=== PATIENT | male | born 1980 | race Caucasian/White ===

== ENCOUNTER 2017-02-23 06:10 | Day surgery (SDC) | payer BC ==
[2017-02-19 17:37] LABS: HEMATOCRIT 48.5 % (40.0-51.0); HEMOGLOBIN 17.1 g/dL (13.6-17.8)
--- NOTE | ~2017-02-23 | OP ---
Record Of Operation [facility] [address] [place]. [address] NAME: RAGHAVENDRA DUARTE : 84 STATUS : [facility]#: [id number] AGE: 36 ADM/REG DATE : 02/23/17 MR#: [id number] REPORT SERV DATE: 02/26/17 DICTATED BY: JUAN LUIS HAWKINS DATE: 02/23/17 REPORT STATUS : Draft TRANSCRIBED BY: MODJim DATE: 02/23/17 DATE OF PROCEDURE: 02/23/2017 PREOPERATIVE DIAGNOSIS: Deviated nasal septum with bilateral inferior turbinate hypertrophy and nasal airway obstruction. POSTOPERATIVE DIAGNOSIS: Deviated nasal septum with bilateral inferior turbinate hypertrophy and nasal airway obstruction. PROCEDURE: A septoplasty with right inferior turbinate reduction and left inferior turbinate outfracture. SURGEON: Juan Luis Hawkins M.D. ANESTHESIA: General endotracheal. ESTIMATED BLOOD LOSS: 30 mL. INTRAOPERATIVE FLUIDS: 1 liter of crystalloid. INTRAOPERATIVE FINDINGS: Severe left-sided nasal septal deflection, completely obstructing the left nasal airway in the nasal valve region. Bilateral inferior turbinate hypertrophy, significantly greater on the right side than the left. Due to the nasal septal deformity, the hypertrophy of the inferior turbinate on the left side was limited to the posterior aspect of the turbinate, for which a simple inferior turbinate outfracture was performed. OPERATIVE PROCEDURE: The patient was identified in the holding room and transported to the operating room. In the operating room, the patient was placed on the operating room table in supine position. Following induction of anesthesia, the patient was intubated without difficulty. Afrin-soaked pledgets were placed to the nose, bilaterally. The septum was injected with 1% lidocaine with 1:100,000 epinephrine. The patient was then prepped and draped in preparation for his nasal surgery. With the severity of his nasal septal deformity to the left side, I opted to perform the incision to the mucosa along the caudal edge of the nasal septum. A mucoperichondrial flap was developed along the left side of the cartilage and extended posteriorly to the bony cartilaginous junction. A mucoperichondrial flap was then developed in a similar fashion in the right side of the nose. On the right side, I was able to extend the dissection well onto the bony nasal septum. An incision was then created through the quadrangular cartilage, leaving a greater than 1 cm caudal strut. A strip of deflected cartilage. The quadrangular cartilage was then divided from the bony nasal septum, leaving a strong dorsal attachment. A strip of deflected cartilage was removed from the floor of the nose, removing a width of approximately 8 mm of cartilage from this area. This did allow the quadrangular cartilage return to the midline and no further cartilaginous resection was required. There was a sharp deformity of the bony nasal septum to the left side at the junction of the perpendicular plate of the ethmoid and the vomer. There was a prominent Record Of Operation [facility] [address]. [address] NAME: RAGHAVENDRA DUARTE : 84 STATUS : [facility]#: [id number] AGE: 36 ADM/REG DATE : 02/23/17 MR#: [id number] REPORT SERV DATE: 02/26/17 DICTATED BY: JUAN LUIS HAWKINS DATE: 02/23/17 REPORT STATUS : Draft TRANSCRIBED BY: ALICE DATE: 02/23/17 spur of bone along the floor of the nose related to hypertrophic bone along the nasal crest. As I could not adequately elevate the mucoperiosteal flap on the left side, I did use an osteotome to remove the bony spur. This did allow for further dissection of the mucoperiosteal flap on the left side. The deflection of the bony nasal septum was then resected. The flaps were placed and the septum was noted to be in the midline. The attachment of the base of the quadrangular cartilage was slightly to the left of midline. This was mobilized and returned to the midline. It was secured with a single 5-0 clear Ethilon suture placed in a simple fashion. The [place] incision was closed with interrupted 4-0 chromic suture, with care taken to cover the Ethilon suture with a thick skin flap. A quilting stitch was then placed. With the septum return to the midline, it was evident that the patient did have bilateral inferior turbinate hypertrophy, significantly greater on the right side than the left. A submucous resection of inferior turbinate tissue was performed on the right side, using the sinus shaving instrumentation. The remaining inferior turbinate tissue was outfractured. As noted above, a simple inferior turbinate outfracture was performed on the left side. At the end of the operative procedure, there was no significant bleeding. Jovel splints were applied to the nose. The patient was subsequently awakened from anesthesia, extubated in the operating room, and transported to the recovery room in good condition. The patient tolerated the procedure. There were no apparent complications. Specimens included nasal septal bone and cartilage. DONY/ALICE Juan Luis Hawkins M.D. / [id number] CC: Juan Luis Hawkins M.D.
[~2017-02-23 06:10] MED LIST: *DENIES
== END 2017-02-23 16:20 | disposition home or self-care (01) ==
LOC: SDC 06:10
PROVIDERS: Otolaryngology
PROC: 09SM0ZZ Reposition Nasal Septum, Open Approach (ICD-10-PCS; principal; 2017-02-23 07:15)
DX: J34.2 Deviated nasal septum (principal); J34.3 Hypertrophy of nasal turbinates; J34.89 Other specified disorders of nose and nasal sinuses
CPT/HCPCS: 85014; 85018; 88300; A9270-GY; J0690; J2250; J2405; J2710; J3010